=== PATIENT | female | born 1940 | race Caucasian/White ===

== ENCOUNTER 2017-03-08 07:57 | Emergency (ER) | payer MEDICARE, OTHER ==
--- NOTE | 2017-03-08 08:11 | EDM.PDOC ---
ED HPI GENERAL MEDICAL PROBLEM - General Chief Complaint: ENT Problem Stated Complaint: NOSE BLEED Time Seen by Provider: 03/08/17 08:25 Source of Information: Reports: Patient History Limitations: Reports: No Limitations - History of Present Illness INITIAL COMMENTS - FREE TEXT/NARRATIVE: 76-year-old female presents to the ED with recurrence of left nasal bleeding. She's not had some bleeding particularly notable in the last 3-4 days but much worse this morning with a very large clot extruded. She is pleasant to travel to [place] by car today and has also a to attend this morning. The nosebleed has been going on for about an hour. She is on Eliquis and aspirin daily. States she is prone to nosebleeds and it seems to happen about this time of the year. Denies any emesis or vomiting of blood. Onset: Unknown/Unsure Onset Date: 03/08/17 Onset Time: 07:15 Duration: Hour(s): Location: Reports: Face (Left nasal hemorrhage.) Quality: Reports: Other Severity: Moderate (No pain.) Improves with: Reports: Rest, Other (Nasal clamp in place at time of my examination with no active bleeding.) Worsens with: Reports: Other Context: Denies: Activity (Nose blowing), Exercise, Lifting, Sick Contact, Trauma, Other Associated Symptoms: Denies: No Other Symptoms, Confusion, Chest Pain, Cough, Diaphoresis, Fever/Chills, Headaches, Loss of Appetite, Malaise, Nausea/Vomiting , Rash, Seizure, Shortness of Breath, Syncope, Weakness 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) (Usual meds only today.) - Related Data Allergies Allergy/AdvReac Type Severity Reaction Status Date / Time fish oil Allergy Rash Verified 03/08/17 08:13 beer Allergy Airway Uncoded 03/08/17 08:13 Tightness Home Meds: Home Meds Glucosam/Chondroit/C/Manganese [Cosamin Ds Capsule] 1 each PO BID 12/07/14 [ History] Losartan [Cozaar] 100 mg PO BEDTIME 12/07/14 [History] Omeprazole 20 mg PO DAILY 12/07/14 [History] Sertraline HCl 50 mg PO DAILY 12/07/14 [History] Simvastatin [Zocor] 20 mg PO BEDTIME 12/07/14 [History] Triamterene/Hydrochlorothiazid [Triamterene-HCTZ 75-50 MG] 50 - 75 mg PO DAILY 09/15/15 [History] LORazepam 0.5 mg PO BID PRN 09/16/15 [History] Apixaban [Eliquis] 5 mg PO BID #60 tablet 09/18/15 [Rx] Aspirin [Halfprin] 81 mg PO DAILY #30 tab.ec 09/18/15 [Rx] Carvedilol [Coreg] 12.5 mg PO BID #60 tablet 09/18/15 [Rx] Past Medical History Cardiovascular History: Reports: Afib (On Eliquis 5mg twice a day.), High Cholesterol, Hypertension Respiratory History: Reports: PE Other Gastrointestinal History: Pt states she has cramps. 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 - Infectious Disease History Infectious Disease History: Reports: Chicken Pox, Measles - Past Surgical History Female Surgical History: Reports: Breast Biopsy, Hysterectomy Musculoskeletal Surgical History: Reports: Knee Replacement Oncologic Surgical History: Reports: Biopsy of Breast Social & Family History - Family History Other HEENT Family History: Cataract. Glaucoma Cardiac: Reports: High Cholesterol, Hypertension Respiratory: Reports: TB Other Musculoskeletal Family History: osteoarthritis Neurological: Reports: Dementia, Migraines, TIA Endocrine/Metabolic: Reports: Diabetes, Type I, Osteoporosis Oncologic: Reports: Breast - Tobacco Use Smoking Status *Q: Never Smoker Second Hand Smoke Exposure: No - Recreational Drug Use Recreational Drug Use: No - Living Situation & Occupation Living situation: Reports: Occupation: Retired ED ROS ENT - Review of Systems Review Of Systems: See Below Constitutional: Denies: Fever, Chills, Malaise, Weakness, Fatigue, Decreased Appetite, Weight Loss HEENT: Reports: Glasses Respiratory: Reports: No Symptoms Cardiovascular: Reports: Blood Pressure Problem, Dyspnea on Exertion (Mild). Denies: Chest Pain, Claudication, Edema, Lightheadedness, Orthopnea (Chronic hypertension usually well-controlled with medication.) Endocrine: Reports: No Symptoms GI/Abdominal: Reports: No Symptoms Musculoskeletal: Reports: Back Pain, Joint Pain (Knees and hips and neck at times.) Skin: Reports: Bruising (Does bruise easy due to being on Eliquis and aspirin.) Neurological: Reports: No Symptoms Psychiatric: Reports: No Symptoms Hematologic/Lymphatic: Reports: No Symptoms ED EXAM, ENT - Physical Exam Exam: See Below Exam Limited By: No Limitations General Appearance: Alert, WD/WN, Anxious, Mild Distress, Other (Nose clamp in place with no active bleeding.) Eye Exam: Bilateral Eye: Normal Inspection Nose: Other (On examination the right anterior nasal cavity appears normal. On the left there is been some bleeding from the mid anterior septum.) Mouth/Throat: Normal Inspection, Normal Gums, Normal Lips, Normal Oropharynx Neck: Normal Inspection, Supple, Non-Tender, Full Range of Motion. No: Lymphadenopathy (L), Lymphadenopathy (R) Respiratory/Chest: No Respiratory Distress, Lungs Clear, Normal Breath Sounds Cardiovascular: Bradycardia (56/m.), Irregularly Irregular GI/Abdominal: Normal Bowel Sounds, Soft, Non-Tender, No Organomegaly Course - Vital Signs Last Recorded V/S: Last Vital Signs Temp 36.4 C 03/08/17 08:10 Pulse 55 L 03/08/17 08:40 Resp 16 03/08/17 08:10 BP 133/73 03/08/17 08:40 Pulse Ox 100 03/08/17 08:10 - Radiology Interpretation Free Text/Narrative:: 76-year-old female presents the ED with acute left anterior nasal hemorrhage this morning. The nose been bleeding off and on with nose blowing the last 3 or 4 days. She had a large clot expressed this morning when she blew her nose and then the nose started to bleed. It subsequently has not stopped until coming to the ED with nose clamp in place. Nose clamp placed for 20 minutes seem to get the bleeding for the most part to stop. On examination she has some mild active bleeding from the mid anterior left nasal septum. It was cauterized with silver nitrate 3. I will review her in about 10 minutes to make sure the bleeding has come under control. - Re-Assessments/Exams Free Text/Narrative Re-Assessment/Exam: 03/08/17 08:47 on review there is still some active bleeding anterior to where cautery had been previously applied. I we cauterized this with silver nitrate but actually bleeding seemed to increase from a small vessel at the junction of the septum and floor of the left naris. Nasal clamp will be replaced and I will review her in 10 minutes. 03/08/17 09:01 reexamined and further cauterization performed after Q-tip utilized to clean out part of the clot from the nares. No further active bleeding is appreciated. Patient will be discharged to home without a packing at this time. I think she is at high risk for reoccurrence of bleeding and would have preferred to place a nasal pack but she prefers to defer the pack at this time. Departure - Departure Time of Disposition: 09:01 Disposition: Home, Self-Care 01 Condition: Fair Clinical Impression: Epistaxis - Discharge Information Instructions: Nosebleed, [id number] Referrals: Kaylen Bobo, MAINTENANCE PORTER [Primary Care Provider] - Forms: ED Department Discharge Additional Instructions: Evaluation the emergency room this morning in regards to left anterior nasal bleeding. Area of bleeding identified and cauterized with silver nitrate in [address] The area is very friable which means that angry in appearance and looks like it wants to bleed quite easily on minimal touching. Try not to blow his nose or aggravate the nose and anyways for the next 48 hours. Suggest using Polysporin ointment on the end of a Q-tip every night at bedtime up into the nose bilaterally to clear the nasal septum with a thick "gob" of Polysporin. Almost failure nose to the point that it feels occluded. Once it reaches body temperature melts and spreads across the nose tissue in about ten minutes after application. I would suggest doing this for about one week and then the [facility] in [place] he may need to apply Polysporin Monday and Monday nights eye twice weekly to prevent further bleeding over the next few weeks until the nose lining heals. If any further bleeding occurs packing will have to be placed usually for 48 hours.
[2017-03-08 08:41] VITALS: BP 133/73
== END 2017-03-08 09:10 | disposition home or self-care (01) ==
LOC: JD.ED 07:57
DX: R04.0 Epistaxis (principal); E78.00 Pure hypercholesterolemia, unspecified; I10 Essential (primary) hypertension; I48.91 Unspecified atrial fibrillation; Z91.013 Allergy to seafood; Z91.09 Other allergy status, other than to drugs and biological substances; Z79.899 Other long term (current) drug therapy; Z79.82 Long term (current) use of aspirin
CPT/HCPCS: 30901; 99282-25; 99283-25

== ENCOUNTER 2022-02-12 12:08 | Emergency (ER) | payer MEDICARE, OTHER ==
[2022-02-12] MEDS ORDERED: Sodium Chloride 0.9% 10 ML Syringe FLUSH PRN (12:20)
[2022-02-12] MEDS ORDERED: Sodium Chloride 0.9% 1,000 ML IV ONE ×2 (12:37→15:31)
[2022-02-12] MEDS ORDERED: Potassium Chloride 20 MEQ Tab.ER PO ONE (13:41)
[2022-02-12 13:46] LABS: CORONAVIRUS COVID-19 NAA NEGATIVE (NEGATIVE)
[2022-02-12] MEDS ORDERED: cefTRIAXone 2 GM in Sodium Chloride 0.9% 100 ML IV ONE (14:18)
[2022-02-12] MEDS ORDERED: cefTRIAXone 2 GM Vial ONE (14:50)
[2022-02-12] MEDS ORDERED: Sodium Chloride 0.9% 100 ML ONE (14:51)
[2022-02-12 17:31] VITALS: BP 114/74; PULSE 76
== END 2022-02-12 17:32 | disposition home or self-care (01) ==
LOC: JD.ED 12:08
DX: N12 Tubulo-interstitial nephritis, not specified as acute or chronic (principal); E78.00 Pure hypercholesterolemia, unspecified; I10 Essential (primary) hypertension; E66.9 Obesity, unspecified; Z68.31 Body mass index [BMI] 31.0-31.9, adult; Z91.013 Allergy to seafood; Z91.048 Other nonmedicinal substance allergy status; Z79.899 Other long term (current) drug therapy; Z79.01 Long term (current) use of anticoagulants; Z79.82 Long term (current) use of aspirin; Z90.49 Acquired absence of other specified parts of digestive tract; Z90.710 Acquired absence of both cervix and uterus; Z20.822 Contact with and (suspected) exposure to COVID-19
CPT/HCPCS: 0241U; 36415; 71045; 80053; 81001; 85025; 86140; 87086; 87088; 87186; 96361; 96365; 99285; A9270; J0696; J3490; J7030